=== PATIENT | female | born 1985 | race Two or more races ===

== ENCOUNTER 2018-11-23 08:42 | Emergency (ER) | payer MEDICAID ==
[~2018-11-23] VITALS: Ht 162.6 cm; Wt 72.7 kg
[2018-11-23 10:12] LABS: BASOPHILS % 0.8 % (0.0-2.0); EOSINOPHILS % 1.4 % (0.0-5.0); HEMATOCRIT. 35.3 % (36.0-48.0); HEMOGLOBIN. 11.5 g/dL (12.0-16.0); MEAN CORPUSCULAR HEMOGLOBIN 24.7 pg (28.0-32.0); MEAN CORPUSCULAR VOLUME 75.6 fL (81.0-99.0); MEAN PLATELET VOLUME 8.6 fl (7.4-10.4); MONOCYTES % 8.5 % (2.0-8.0); NEUTROPHILS % 58.3 % (40.0-76.0); PLATELET 348 x1000/uL (130-400); RED BLOOD CELL COUNT 4.67 mill/uL (4.2-5.4); RED CELL DISTRIBUTION WIDTH 13.9 % (11.6-14.6)
[2018-11-23 10:17] LABS: CLARITY URINE CLEAR (CLEAR); COLOR URINE YELLOW (YELLOW); KETONES URINE NEGATIVE (NEGATIVE); LEUKOCYTE ESTERASE URINE NEGATIVE (NEGATIVE); NITRITE URINE NEGATIVE (NEGATIVE); OCCULT BLOOD URINE NEGATIVE (NEGATIVE); PH URINE 5.5 (4.5-8.0); PROTEIN URINE NEGATIVE (NEGATIVE); SPECIFIC GRAVITY URINE 1.034 (1.005-1.030); UROBILINOGEN URINE 0.2 E.U./dL (0.2-1.0)
[2018-11-23 10:20] LABS: CHLORIDE 105 mEq/L (98-107)
[2018-11-23] MEDS ORDERED: KETOROLAC 30MG/ML VIAL IV NR (11:00)
[2018-11-23] MEDS ORDERED: FLUCONAZOLE 150MG TABLET PO NR (11:30)
[2018-11-23 13:48] VITALS: BP 135/80
== END 2018-11-23 13:50 | disposition home or self-care (01) ==
LOC: EDSEX 08:52 → ER 08:52
DX: B37.3 Candidiasis of vulva and vagina (principal); E11.9 Type 2 diabetes mellitus without complications; K76.0 Fatty (change of) liver, not elsewhere classified; E66.9 Obesity, unspecified; Z68.27 Body mass index [BMI] 27.0-27.9, adult; Z98.890 Other specified postprocedural states
CPT/HCPCS: 36415; 74176; 80048; 81003; 81025; 83690; 85025; 96374; 99284; J1885; Z7610

== ENCOUNTER 2025-04-16 09:37 | Emergency (ER) | payer MEDICAID ==
[~2025-04-16] VITALS: Ht 160 cm; Wt 78.0 kg
[2025-04-16 10:07] VITALS: O2SAT 100
[2025-04-16 12:39] LABS: CLARITY URINE CLEAR (CLEAR); COLOR URINE YELLOW (YELLOW); GLUCOSE URINE 3+ (NEGATIVE); KETONES URINE 3+ (NEGATIVE); LEUKOCYTE ESTERASE URINE TRACE (NEGATIVE); NITRITE URINE NEGATIVE (NEGATIVE); OCCULT BLOOD URINE NEGATIVE (NEGATIVE); PH URINE 5.5 (4.5-8.0); PROTEIN URINE TRACE (NEGATIVE); SPECIFIC GRAVITY URINE 1.049 (1.005-1.030); UROBILINOGEN URINE 0.2 E.U./dL (0.2-1.0)
[2025-04-16] MEDS ORDERED: FLUC150T46 MT (12:57)
[2025-04-16 12:59] LABS: SQUAMOUS EPITHELIAL CELL URINE 2+ /lpf (RARE/1+)
[2025-04-16] MEDS ORDERED: FLUCONAZOLE 100MG TABLET PO ONE (13:00)
[2025-04-16 13:02] LABS: BACTERIA URINE NONE SEEN; RBC URINE 0-2 /hpf (0-2); YEAST URINE 1+
[2025-04-16] MEDS ORDERED: FLUCONAZOLE 150MG TABLET PO SCH (13:15)
[2025-04-16 13:16] VITALS: BP 138/72; PULSE 95; RESP 15; TEMP 37; O2SAT 100
== END 2025-04-16 13:17 | disposition home or self-care (01) ==
LOC: ER 09:37
DX: B37.31 Acute candidiasis of vulva and vagina (principal); E11.9 Type 2 diabetes mellitus without complications; Z98.890 Other specified postprocedural states
CPT/HCPCS: 81003; 81025; 99283